=== PATIENT | female | born 1990 | race Caucasian/White ===

== ENCOUNTER 2016-11-30 03:25 | Emergency (ER) | payer SELFPAY ==
[~2016-11-30] VITALS: Ht 162.6 cm; Wt 74.9 kg
[2016-11-30 03:31] VITALS: TEMP 36.7; Ht 162.6 cm; Wt 74.9 kg
[2016-11-30] MEDS ORDERED: KETOROLAC TROMETHAMINE 30 MG/ML VIAL IV STA (03:51)
[2016-11-30] MEDS ORDERED: SODIUM CHLORIDE 0.9% 1000ML 1,000 ML IV STA (03:51)
[2016-11-30] MEDS ORDERED: ONDANSETRON INJ 2 MG/ML 2 ML VIAL IV STA (03:51)
[2016-11-30] MEDS ORDERED: ACET-1256 PO (03:56)
[2016-11-30 04:26] LABS: BASO % 0.3 %; BASO ABS # 0.03 K/uL (0-0.2); COMPLETE YES; EOS % 0.6 %; HEMATOCRIT 33.1 % (37-47); IG% 0.3 %; LYMPH % 10.8 %; LYMPH ABS # 1.04 K/uL (1.2-3.4); MEAN CELL VOLUME 79.4 fL (80-100); MEAN CORPUSCULAR HEMOGLOBIN 25.7 pg (25-34); MEAN CORPUSCULAR HGB CONC 32.3 g/dl (32-36); MEAN PLATELET VOLUME 10.6 fL (7.4-10.4); MONO % 6.4 %; NEUT % 81.6 %; PLATELET COUNT 264 K/uL (130-400); RED BLOOD COUNT 4.17 M/uL (4.2-5.4); WHITE BLOOD COUNT 9.59 K/uL (4.8-10.8)
[2016-11-30 04:27] VITALS: O2SAT 99
[2016-11-30 04:33] LABS: URINE APPEARANCE CLEAR (CLEAR); URINE BILIRUBIN NEG (NEG); URINE COLOR YELLOW; URINE EPITHELIAL CELL AUTO >30 /lpf (0-5); URINE NITRITE NEG (NEG); URINE SPECIFIC GRAVITY 1.026 (1.000-1.030); UROBILINOGEN NEG (NEG); ZZUR CULT IF INDIC CLEAN CATCH NO
[2016-11-30 04:44] LABS: ALT/SGPT 21 U/L (12-78); AST/SGOT 15 U/L (15-37); BLOOD UREA NITROGEN 15 mg/dl (7-18); BUN/CREATININE RATIO 21.8 (10-20); CALCIUM 8.4 mg/dl (8.5-10.1); CARBON DIOXIDE 27 mmol/L (21-32); CHLORIDE 106 mmol/L (98-107); GLUCOSE 108 mg/dl (70-99); POTASSIUM 3.5 mmol/L (3.5-5.1); SODIUM 139 mmol/L (136-145)
[2016-11-30 04:46] LABS: ALKALINE PHOSPHATASE 51 U/L (45-117)
[2016-11-30 04:57] LABS: PREG INTERNAL NEGATIVE QC NEG CLEAR BACKGROUND; PREG INTERNAL POSITIVE QC POS CONTROL LINE
[2016-11-30 05:08] LABS: MANUAL MICROSCOPIC REQUIRED? NO; REVIEW REQ? YES
[2016-11-30] MEDS ORDERED: MoRPHine SULFATE 4 MG/ML 1 ML CARP\\VIAL IV STA (05:31)
[2016-11-30 06:30] LABS: URINE MUCUS PRESENT (NONE PRSENT)
--- NOTE | 2016-11-30 06:44 | DIAGNOSTIC IMAGING REPORT ---
EXAMINATION: RENAL ULTRASOUND CLINICAL HISTORY: Left lower quadrant abdominal pain. Possible calculus. COMPARISON STUDY: None FINDINGS: The right kidney measures 11.5 cm. The left kidney measures 11.9 cm. There is no evidence of hydronephrosis. There are no renal masses. The bladder was decompressed the time of scanning. Neither ureteral jet was visualized. IMPRESSION : 1. No renal masses identified 2. No evidence of hydronephrosis Electronically signed by: Bj Hidalgo M.D. 11/30/2016 6:43 AM Dictated Date/Time: 11/30/2016 6:42 AM
[2016-11-30 06:59] VITALS: BP 111/73; PULSE 78; O2SAT 98
[2016-11-30] MEDS ORDERED: OXYCODONE IR HOME PACK PO ONE (07:00)
--- NOTE | 2016-11-30 07:00 | EMERGENCY ROOM VISIT NOTE ---
History First contact with patient: 03:37 Chief Complaint: ABDOMINAL PAIN Stated Complaint: SIDE PAIN Nursing Triage Summary: Left lower quad pain since midnight. Pt took tylenol at 0030 and vomitted it up. History of Present Illness The patient is a 26 year old female who presents to the Emergency Room with complaints of sudden onset of left lower quadrant pain since midnight. Patient tried Tylenol and threw it up. Pain currently 8 out of 10. Nothing makes it better or worse. Patient has never had intercourse. Patient states she has no active medical problems. No history kidney stones. Patient denies chest pain, dyspnea, fever, chills, urinary symptoms, vaginal itching or discharge. Menstrual cycle was one week ago. She denies any risk for . Review of Systems See HPI for pertinent positives & negatives. A total of 10 systems reviewed and were otherwise negative. Past Medical/Surgical History None Social History Smoking Status: Never Smoker Smokeless Tobacco Use: No Drug Use: none Housing Status: lives with family Current/Historical Medications Scheduled PRN Acetaminophen (Tylenol), 1,000 MG PO Q4 PRN for Pain Physical Exam Vital Signs Date Time Temp Pulse Resp B/P (MAP) Pulse Ox O2 Delivery O2 Flow Rate FiO2 11/30/16 05:54 83 20 118/84 100 Room Air 11/30/16 04:29 91 11/30/16 04:27 83 20 126/86 95 Room Air 11/30/16 04:27 99 Room Air 11/30/16 03:31 36.7 89 20 118/84 99 Room Air Physical Exam VITALS: Vitals are noted on the nurse's note and reviewed by myself. Vital signs stable. GENERAL: Pleasant female, in no acute distress, nondiaphoretic, well-developed well-nourished. SKIN: The skin was without rashes, erythema, edema, or bruising. There is no tenting of the skin. Capillary reflex less than 2 seconds. HEAD: Normocephalic atraumatic. EARS: External auditory canals clear, tympanic membranes pearly carrillo without erythema or effusion bilaterally. EYES: Pupils equal round and reactive to light and accommodation. Conjunctivae without injection, sclerae without icterus. Extraocular movements intact. NOSE: Patent, turbinates without inflammation or discharge. MOUTH: Mucous membranes moist. Pharynx without erythema or exudate. Uvula midline. Airway patent. Tongue does not deviate. NECK: Supple without nuchal rigidity. No lymphadenopathy. No thyromegaly. Cervical spine is nontender. No JVD. HEART: Regular rate and rhythm without murmurs gallops or rubs. LUNGS: Clear to auscultation bilaterally without wheezes, rales or rhonchi. No dullness to percussion. No retractions or accessory muscle use. ABDOMEN: Positive bowel sounds x 4. Normal tympanic percussion. Soft, tender to palpation left lower suprapubic area, no CVA tenderness, without masses or organomegaly. Case sign negative. No guarding or rebound tenderness. MUSCULOSKELETAL: No muscle atrophy, erythema, or edema noted. NEURO: Patient was alert and oriented to person place and time. Normal sensation to light and sharp touch. No focal neurological deficits. Medical Decision & Procedures Laboratory Results 11/30/16 04:00 Red Blood Count 4.17, Mean Corpuscular Volume 79.4, Mean Corpuscular Hemoglobin 25.7, Mean Corpuscular Hemoglobin Concent 32.3, Mean Platelet Volume 10.6, Neutrophils (%) (Auto) 81.6, Lymphocytes (%) (Auto) 10.8, Monocytes (%) (Auto) 6.4, Eosinophils (%) (Auto) 0.6, Basophils (%) (Auto) 0.3, Neutrophils # (Auto) 7.82, Lymphocytes # (Auto) 1.04, Monocytes # (Auto) 0.61, Eosinophils # (Auto) 0.06, Basophils # (Auto) 0.03 11/30/16 04:00 Test 11/30/16 04:00 White Blood Count 9.59 K/uL (4.8-10.8) Red Blood Count 4.17 M/uL (4.2-5.4) Hemoglobin 10.7 g/dL (12.0-16.0) Hematocrit 33.1 % (37-47) Mean Corpuscular Volume 79.4 fL (80-100) Mean Corpuscular Hemoglobin 25.7 pg (25-34) Mean Corpuscular Hemoglobin Concent 32.3 g/dl (32-36) Platelet Count 264 K/uL (130-400) Mean Platelet Volume 10.6 fL (7.4-10.4) Neutrophils (%) (Auto) 81.6 % Lymphocytes (%) (Auto) 10.8 % Monocytes (%) (Auto) 6.4 % Eosinophils (%) (Auto) 0.6 % Basophils (%) (Auto) 0.3 % Neutrophils # (Auto) 7.82 K/uL (1.4-6.5) Lymphocytes # (Auto) 1.04 K/uL (1.2-3.4) Monocytes # (Auto) 0.61 K/uL (0.11-0.59) Eosinophils # (Auto) 0.06 K/uL (0-0.5) Basophils # (Auto) 0.03 K/uL (0-0.2) RDW Standard Deviation 51.1 fL (36.4-46.3) RDW Coefficient of Variation 17.6 % (11.5-14.5) Immature Granulocyte % (Auto) 0.3 % Immature Granulocyte # (Auto) 0.03 K/uL (0.00-0.02) Urine Color YELLOW Urine Appearance CLEAR (CLEAR) Urine pH 5.0 (4.5-7.5) Urine Specific [place] 1.026 (1.000-1.030) Urine Protein TRACE (NEG) Urine Glucose (UA) NEG (NEG) Urine Ketones NEG (NEG) Urine Occult Blood NEG (NEG) Urine Nitrite NEG (NEG) Urine Bilirubin NEG (NEG) Urine Urobilinogen NEG (NEG) Urine Leukocyte Esterase NEG (NEG) Urine WBC (Auto) 1-5 /hpf (0-5) Urine RBC (Auto) 0-4 /hpf (0-4) Urine Hyaline Casts (Auto) 0 /lpf (0-5) Urine Epithelial Cells (Auto) >30 /lpf (0-5) Urine Bacteria (Auto) NEG (NEG) Urine Renal Epithelial Cells /lpf (0-5) Urine Crystals CALCIUM OXALATE (NONE Urine Mucus PRESENT (NONE PRSENT) Anion Gap 6.0 mmol/L (3-11) Est Creatinine Clear Calc Drug Dose 121.8 ml/min Estimated GFR () 139.6 Estimated GFR (Non- 120.4 BUN/Creatinine Ratio 21.8 (10-20) Calcium Level 8.4 mg/dl (8.5-10.1) Total Bilirubin 0.3 mg/dl (0.2-1) Direct Bilirubin < 0.1 mg/dl (0-0.2) Aspartate Amino Transf (AST/SGOT) 15 U/L (15-37) Alanine Aminotransferase (ALT/SGPT) 21 U/L (12-78) Alkaline Phosphatase 51 U/L (45-117) Total Protein 7.4 gm/dl (6.4-8.2) Albumin 3.8 gm/dl (3.4-5.0) Lipase 154 U/L (73-393) Human Chorionic Gonadotropin, Qual NEG (NEG) Medications Administered Medications (Trade) Dose Ordered Sig/Ky Route Start Time Stop Time Status Last Admin Dose Admin Sodium Chloride 1,000 ml @ 999 mls/hr Q1H1M STAT IV 11/30/16 03:51 11/30/16 04:51 DC 11/30/16 04:23 999 MLS/HR Ketorolac Tromethamine (Toradol Inj) 30 mg NOW STAT IV 11/30/16 03:51 11/30/16 03:53 DC 11/30/16 04:23 30 MG Ondansetron HCl (Zofran Inj) 4 mg NOW STAT IV 11/30/16 03:51 11/30/16 03:53 DC 11/30/16 04:22 4 MG Morphine Sulfate (MoRPHine SULFATE INJ) 4 mg NOW STAT IV 11/30/16 05:31 11/30/16 05:32 DC 11/30/16 05:48 4 MG ED Course Prior records/ancillary studies reviewed. Triage Nursing notes reviewed. The patient's history was concerning for abdominal pain. Differential diagnosis: Etiologies such as appendicitis, cyst, torsion, diverticulitis, PUD, biliary pathology, UTI, pancreatitis, obstruction, mesenteric ischemia, aortic pathology , infections, inflammatory bowel disease, renal colic, as well as others were entertained. Physical examination findings: As above. ER treatment provided: IV fluids, Toradol, Zofran On reassessment the patient felt better. Diagnostics interpreted by me: The labs revealed mild anemia, most consistent with iron deficiency, negative urine negative hCG Imaging studies: Pelvic ultrasound concerning for left ovarian cyst. This is discussed with the radiologist. Patient had no signs of torsion. Renal ultrasound negative for hydronephrosis Exam and history seem consistent with left ovarian cyst. patient was advised repeat pelvic ultrasound 6 weeks for resolution of ovarian cyst. She is advised follow-up with [facility]. Patient does not have an acute abdomen on exam. Patient is well-appearing. Patient is neurovascularly and neurologically intact. Patient is tolerating fluids. Patient is ambulating without difficulties. Patient was advised to follow-up with family care in a few days or here in the ER sooner for chest pain, difficulty breathing, abdominal pain, fevers, worsening signs or symptoms or as needed. By the evaluation outlined above emergent etiologies such as appendicitis, diverticulitis, PUD, biliary pathology, UTI, pancreatitis, obstruction, mesenteric ischemia, aortic pathology, infections, inflammatory bowel disease, renal colic, as well as others were deemed relatively unlikely. The pt informed about the findings as listed above. All questions were answered and pleased with the treatment. Return instructions were outlined and the patient was discharged in stable condition. Referral: The patient was referred back to their primary care physician and [facility] for follow-up in 2 to 3 days for a recheck of the current condition. Case reviewed with my attending. Medical Decision As above Medication Reconcilliation Current Medication List: was personally reviewed by me Blood Pressure Screening Patient's blood pressure: Normal blood pressure Impression Primary Impression: Left ovarian cyst Departure Information Dispostion Home / Self-Care Condition GOOD Referrals No Doctor, Assigned (PCP) Patient Instructions My [facility] Additional Instructions DO NOT drive, drink alcohol, operate machinery, or perform dangerous activities today. You were given medications in the ER that can affect your ability to safely function or operate a vehicle. Recommend repeat pelvic ultrasound in 6 weeks for resolution of cyst. Rest. Stay well hydrated. No strenuous activity until symptoms resolve. Zofran 4 tablet every 6 hours as needed for nausea and vomiting. Oxycodone (OxyIR) 5mg: Take 1-2 pills every four hours for breakthrough pain. Avoid alcohol, operating machinery or dangerous equipment, working on ladders or roofs, DRIVING, or situations where being under the influence may be dangerous. It is recommended to use an [id number] stool softener such as Colace, 100mg twice daily while taking this medication to avoid constipation. Ibuprofen(Motrin, Advil) may be used for fever or pain. Use 600mg every six hours as needed. Take with food. Avoid using more than 2400mg in a 24 hour period. Do not use 2400mg per day for more than three consecutive days without physician direction. Prolonged inappropriate use can lead to stomach upset or ulcers. (AND/OR) Acetaminophen(Tylenol) may be used for fever or pain. Use 1000mg every six hours as needed. Avoid using more than 3000mg in a 24 hour period. Rest and drink plenty of fluids as tolerated. Continue current medications. Return to the ER immediately for severe pain, heavy vaginal bleeding, abdominal pain, vomiting, fevers, chest pains, difficulty breathing, worsening of your condition, or as needed. Follow up with your [facility] in 2-3 days for a recheck of your current condition.
--- NOTE | 2016-11-30 07:01 | DIAGNOSTIC IMAGING REPORT ---
PELVIC ULTRASOUND CLINICAL HISTORY: Left lower quadrant pain. COMPARISON STUDY: None. TECHNIQUE: Transabdominal sonography of the pelvis was performed. Transvaginal imaging was deferred in this patient. FINDINGS: The uterus measures 7.5 x 3.8 x 5 cm. The endometrium measures 1 cm in thickness. The right ovary is normal, measuring 3.4 x 2.2 x 3.3 cm. There is mild asymmetric enlargement and increased echogenicity of the left ovary which measures 4.8 x 2.7 x 4 cm. Arterial flow was identified within the left ovary although slightly diminished when compared to the right. Note was made of a 4.1 cm cyst projecting off the left ovary. There may be 3.3 cm echogenic left ovarian lesion. This could reflect a hemorrhagic cyst. There is no free fluid. IMPRESSION: 1. Asymmetric increased size and echogenicity of the left ovary with an exophytic 4.1 cm left ovarian cyst and possible 3.3 cm echogenic left ovarian lesion which could reflect a hemorrhagic cyst. Arterial flow within the left ovary although asymmetrically decreased when compared to the right. Suboptimal evaluation given lack of transvaginal exam. Left ovarian torsion would be difficult to exclude although is considered less likely. Close clinical follow-up is recommended. If persistent pain, repeat ultrasound or Gynecologic consultation is recommended. Findings discussed with Elisa Barksdale time of dictation. 2. Normal sonographic appearance of the uterus and right ovary. Electronically signed by: Zaki Love M.D. 11/30/2016 6:59 AM Dictated Date/Time: 11/30/2016 6:44 AM
[2016-11-30] MEDS ORDERED: ONDANSETRON HOME PACK 4MG OD TAB PO ONE (07:15)
== END 2016-11-30 07:21 | disposition home or self-care (01) ==
LOC: C.EDB 03:28 → C.EDA 07:21
DX: N83.202 Unspecified ovarian cyst, left side (principal)